=== PATIENT | male | born 1995 | race Caucasian/White ===

== ENCOUNTER 2016-09-22 16:52 | Emergency (ER) | payer OTHER ==
[2016-09-22] MEDS ORDERED: EPINEPHrine 1MG/10ML SYRINGE 1.5IN ONE (16:53)
--- NOTE | 2016-09-22 19:38 | EDDOCDS ---
Physician Documentation [facility] Name: Daniel Zuniga Age: 21 yrs Sex: Male : 1995 Arrival Date: 09/22/2016 Time: 16:52 Bed 2 Private MD: Disposition: Patient pronounced on 09/22/16 17:00 by Krishna Estrada. Impression: Cardiac arrest. Historical: - Allergies: Unable to obtain; - Home Meds: 1. Unknown - PMHx: Unable to obtain; - PSHx: Unable to obtain; - Social history: Smoking status: unknown if patient ever smoked tobacco. unable to assess. - : Unable to assess if pt is on anticoagulants. Unable to Verify Home Med List with the patient / caregiver. Immunization status is unknown. - Exposure Risk Screening:: Unable to Assess. Procedures: 09/22 17:37 Intubation: Intubated orally using Glidescope with 8.0 Fr. ETT. was successful on first br1 attempt. Ventilated with Ambu bag. Placement verified by CO2 detector w/ + color change, auscultating bilateral breath sounds, Patient tolerated well. 17:38 CPR: See CPR flow sheet. Initial patient assessment: unresponsive, cyanotic, pupils br1 fixed & dilated, no respiratory effort, intubated, Ambu ventilation, dependent lividity noted, pulses present w/ compressions, The presenting cardiac rhythm is asystole. respirations assisted with BVM, the patient was intubated prior to arrival, Intubated with Crispin airway by EMS, replaced with ET tube in ED., Compressions: began at 15:55. Meds given: See Meds list. Epinephrine X 3, despite ED evaluation and treatment, the patient . CPR was stopped at 17:00. MDM: 17:16 EPINEPHrine (1:10,000) 1 mg IVP once ordered. hs1 17:16 EPINEPHrine (1:10,000) 1 mg IVP once ordered. hs1 17:16 EPINEPHrine (1:10,000) 1 mg IVP once ordered. hs1 17:16 naloxone 2 mg IVP once ordered. hs1 18:25 ED course: Derek [place] Criminal Investigation photographing body at this time. br1 Accompanied by PFS. Heather. 19:07 [facility] Payment Agreement was scanned into [employer] and attached to record. jp5 19:07 Financial registration complete. jp5 Administered Medications: 06:52 Drug: EPINEPHrine 1 mg [epinephrine HCl (PF) 1 mg/mL (1 mL) intravenous solution (1 hs1 mL)] Route: IVP; Site: right antecubital; 16:45 Drug: EPINEPHrine 1 mg [epinephrine HCl (PF) 1 mg/mL (1 mL) intravenous solution (1 hs1 mL)] Route: IVP; Site: Implantable Access Device; 16:51 Drug: naloxone 2 mg [naloxone 1 mg/mL injection syringe (2 mL)] Route: IVP; Site: right hs1 antecubital; 16:56 Drug: EPINEPHrine 1 mg [epinephrine HCl (PF) 1 mg/mL (1 mL) intravenous solution (1 hs1 mL)] Route: IVP; Site: right antecubital; Signatures: Grupo Montaño RN RN Krishna Estrada MD MD br1 Erin Pino RN RN hs1 Michoacano Ruelas jp5 The chart was reviewed and I authenticate all verbal orders and agree with the evaluation and treatment provided.Attachments: 19:07 [facility] Payment Agreement jp5 ELIEL
--- NOTE | 2016-09-22 19:38 | EDDOCDS ---
Nurse's Notes [facility] Name: Daniel Zuniga Age: 21 yrs Sex: Male : 1995 Arrival Date: 09/22/2016 Time: 16:52 Bed 2 Private MD: Diagnosis: Cardiac arrest Presentation: 09/22 16:59 Presenting complaint: EMS states: found by fellow soldier. Patient was found with hs1 hypodermic needle and found down. Patient initial rhythm asystole. Method of arrival: Ambulance:. Care prior to arrival: See EMS report. oral intubation. Compressions began prior to arrival. 16:59 Acuity: ARTI Level 1 hs1 17:12 Adult Sepsis Screening: Patient has new or worsening altered mentation (1 point). hs1 Patient's respiratory rate is less than 22. Systolic blood pressure is less than or equal to 100 (1 point). Patient has a qSOFA score of 2. No known or suspected infection- Negative Sepsis Screen. Suicide/Homicide risk assessment- Unable to assess, . resuscitation. 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 Transition of care: patient was not received from another setting of care. 17:12 Method Of Arrival: Ambulance hs1 Triage Assessment: 16:45 General: Appears well nourished, well groomed. Pain: Unable to use pain scale. Patient hs1 is unresponsive. Neurological: Level of Consciousness is unresponsive. Historical: - Allergies: Unable to obtain; - Home Meds: 1. Unknown - PMHx: Unable to obtain; - PSHx: Unable to obtain; - Social history: Smoking status: unknown if patient ever smoked tobacco. unable to assess. - : Unable to assess if pt is on anticoagulants. Unable to Verify Home Med List with the patient / caregiver. Immunization status is unknown. - Exposure Risk Screening:: Unable to Assess. Screenin:12 Abuse/DV Screen: Unable to Assess. Nutritional screening: Unable to Assess. hs1 17:14 Screening information is obtained from unable to obtain. Fall risk: Unable to Assess. hs1 Assistance ADL's: unable to assess. Advance Directives: Unable to assess Advance Directive status due to pt condition. Assessment: 16:45 CPR assessment: unresponsive, dependent lividity noted. CPR assessment: no respiratory hs1 effort, intubated, Ambu ventilation, cyanotic, pale, pulses present w/ compressions. Cardiac rhythm is asystole. 16:51 CPR assessment: unresponsive, no respiratory effort, intubated, Ambu ventilation, hs1 cyanotic, pale, dependent lividity noted, pulses present w/ compressions. 16:56 CPR assessment: unresponsive, pupils fixed & dilated, no respiratory effort, intubated, hs1 Ambu ventilation, cyanotic, pale, dependent lividity noted, pulses present w/ compressions. Cardiac rhythm is asystole. Derm: Derm: abrasion noted to forehead. 16:59 CPR assessment: unresponsive, pupils fixed & dilated, no respiratory effort, intubated, hs1 Ambu ventilation, cyanotic, pale, dependent lividity noted, pulses present w/ compressions. Cardiac rhythm is asystole. Derm: abrasion/injury noted to forehead - dried blood noted. Social Work Consult: 17:06 Social Work Note: Spoke to [place] Isaac and gathered additional information. ml4 Extended support given. PSA contacted SSG Pena and informed him of pt's cardiac arrest, awaiting his arrival. 17:59 Social Work Note: EDUARDO (Farhat Szymanski and Festus Pisano) are currently present and ml4 investigating. 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 ml4 Vitals: 17:14 Log In Time N/A - ambulance arrival. hs1 ED Course: 16:45 Assist ventilation with Ambu bag. hs1 16:49 Inserted saline lock: 20 gauge in right antecubital area The patient tolerated the hs1 procedure well. 16:51 Changed richard airway pulled and ET Tube inserted. Intubation: 8.0 Fr. ETT placed orally. hs1 Performed by Sean MCINTOSH Successful on first attempt. Placement verified by Ventilated with Ambu bag. Inserted saline lock: 20 gauge in left hand. 16:56 Patient visited by Coty Pollard. zo 16:56 Patient moved to Waiting zo 16:56 Patient moved to 2 zo 17:01 Krishna Estrada MD is Attending Physician. br1 17:01 Patient visited by Krishna Estrada MD. br1 17:50 Krishna Estrada MD is Pronouncing Provider. br1 19:06 Patient name changed from Daniel\S\\S\Zuniga\S\ to Daniel\S\ \S\Zuniga. EDMS 19:07 [facility] Payment Agreement was scanned into [employer] and attached to record. jp5 19:15 EDUARDO Team here and Chain of Command for Investigation purposes per ME. hs1 Administered Medications: 06:52 Drug: EPINEPHrine 1 mg [epinephrine HCl (PF) 1 mg/mL (1 mL) intravenous solution (1 hs1 mL)] Route: IVP; Site: right antecubital; 16:45 Drug: EPINEPHrine 1 mg [epinephrine HCl (PF) 1 mg/mL (1 mL) intravenous solution (1 hs1 mL)] Route: IVP; Site: Implantable Access Device; 16:51 Drug: naloxone 2 mg [naloxone 1 mg/mL injection syringe (2 mL)] Route: IVP; Site: right hs1 antecubital; 16:56 Drug: EPINEPHrine 1 mg [epinephrine HCl (PF) 1 mg/mL (1 mL) intravenous solution (1 hs1 mL)] Route: IVP; Site: right antecubital; RT: 17:09 CPR Time: 30Minutes. js Order Results: There are currently no results for this order. Outcome: 17:50 Code Team Members : Krishna Estrada MD Medication Nurse: Odalys Huff RN Respiratory hs1 Therapist: Analilia Beck BROOMMAKING SUPERVISOR Other Team Members: Manuel Barker RN, Millie Chaves RN, Charles Nix RN, Krista Harvey FUEL CELL BINDER, Krista Mary FUEL CELL BINDER, Yareli Bruner FUEL CELL BINDER. Rhythm strips are placed in the patient chart. Outcome Patient . Patient : Time of 17:00 Pronounced by Krishna Estrada MD Body released to [place]. Condition: . 17:52 Patient . br1 19:37 Patient left the ED. cz Signatures: Dispatcher [employer] EDMS Grupo Montaño, RN RN Bobby Young Michelle, PSA PSA ml4 Coty Pollard Brian, MD MD br1 Erin Pino RN RN hs1 Michoacano Ruelas jp5 MTDD
--- NOTE | 2016-09-24 20:37 | EDDOCDS ---
Physician Documentation [facility] Name: Daniel Zuniga Age: 21 yrs Sex: Male : 1995 Arrival Date: 09/22/2016 Time: 16:52 Bed 2 Private MD: Disposition: Patient pronounced on 09/22/16 17:00 by Krishna Estrada. Impression: Cardiac arrest. Historical: - Allergies: Unable to obtain; - Home Meds: 1. Unknown - PMHx: Unable to obtain; - PSHx: Unable to obtain; - Social history: Smoking status: unknown if patient ever smoked tobacco. unable to assess. - : Unable to assess if pt is on anticoagulants. Unable to Verify Home Med List with the patient / caregiver. Immunization status is unknown. - Exposure Risk Screening:: Unable to Assess. Procedures: 09/22 17:37 Intubation: Intubated orally using Glidescope with 8.0 Fr. ETT. was successful on first br1 attempt. Ventilated with Ambu bag. Placement verified by CO2 detector w/ + color change, auscultating bilateral breath sounds, Patient tolerated well. 17:38 CPR: See CPR flow sheet. Initial patient assessment: unresponsive, cyanotic, pupils br1 fixed & dilated, no respiratory effort, intubated, Ambu ventilation, dependent lividity noted, pulses present w/ compressions, The presenting cardiac rhythm is asystole. respirations assisted with BVM, the patient was intubated prior to arrival, Intubated with Crispin airway by EMS, replaced with ET tube in ED., Compressions: began at 15:55. Meds given: See Meds list. Epinephrine X 3, despite ED evaluation and treatment, the patient . CPR was stopped at 17:00. MDM: 17:16 EPINEPHrine (1:10,000) 1 mg IVP once ordered. hs1 17:16 EPINEPHrine (1:10,000) 1 mg IVP once ordered. hs1 17:16 EPINEPHrine (1:10,000) 1 mg IVP once ordered. hs1 17:16 naloxone 2 mg IVP once ordered. hs1 18:25 ED course: Derek [place] Criminal Investigation photographing body at this time. br1 Accompanied by PFS. Heather. 19:07 [facility] Payment Agreement was scanned into [employer] and attached to record. jp5 19:07 Financial registration complete. jp5 09/23 13:23 Other: CHECKLIST FOR PT was scanned into [employer] and attached to record. gb 13:23 T-Sheet-- Draft Copy was scanned into [employer] and attached to record. gb 13:25 Rhythm Strip was scanned into [employer] and attached to record. gb Administered Medications: 09/22 06:52 Drug: EPINEPHrine 1 mg [epinephrine HCl (PF) 1 mg/mL (1 mL) intravenous solution (1 hs1 mL)] Route: IVP; Site: right antecubital; 16:45 Drug: EPINEPHrine 1 mg [epinephrine HCl (PF) 1 mg/mL (1 mL) intravenous solution (1 hs1 mL)] Route: IVP; Site: Implantable Access Device; 16:51 Drug: naloxone 2 mg [naloxone 1 mg/mL injection syringe (2 mL)] Route: IVP; Site: right hs1 antecubital; 16:56 Drug: EPINEPHrine 1 mg [epinephrine HCl (PF) 1 mg/mL (1 mL) intravenous solution (1 hs1 mL)] Route: IVP; Site: right antecubital; Signatures: Grupo Montaño, RN RN cz Mirta Brewster, Reg Reg Krishna Estrada MD MD br1 Erin Pino RN RN hs1 Michoacano Ruelas jp5 The chart was reviewed and I authenticate all verbal orders and agree with the evaluation and treatment provided.Attachments: :07 [facility] Payment Agreement jp5 13:23 T-Sheet-- Draft Copy gb Chart Complete MTDD
--- NOTE | 2016-09-24 20:37 | EDDOCDS ---
Physician Documentation [facility] Name: Daniel Zuniga Age: 21 yrs Sex: Male : 1995 Arrival Date: 09/22/2016 Time: 16:52 Bed 2 Private MD: Disposition: Patient pronounced on 09/22/16 17:00 by Krishna Estrada. Impression: Cardiac arrest. Historical: - Allergies: Unable to obtain; - Home Meds: 1. Unknown - PMHx: Unable to obtain; - PSHx: Unable to obtain; - Social history: Smoking status: unknown if patient ever smoked tobacco. unable to assess. - : Unable to assess if pt is on anticoagulants. Unable to Verify Home Med List with the patient / caregiver. Immunization status is unknown. - Exposure Risk Screening:: Unable to Assess. Procedures: 09/22 17:37 Intubation: Intubated orally using Glidescope with 8.0 Fr. ETT. was successful on first br1 attempt. Ventilated with Ambu bag. Placement verified by CO2 detector w/ + color change, auscultating bilateral breath sounds, Patient tolerated well. 17:38 CPR: See CPR flow sheet. Initial patient assessment: unresponsive, cyanotic, pupils br1 fixed & dilated, no respiratory effort, intubated, Ambu ventilation, dependent lividity noted, pulses present w/ compressions, The presenting cardiac rhythm is asystole. respirations assisted with BVM, the patient was intubated prior to arrival, Intubated with Crispin airway by EMS, replaced with ET tube in ED., Compressions: began at 15:55. Meds given: See Meds list. Epinephrine X 3, despite ED evaluation and treatment, the patient . CPR was stopped at 17:00. MDM: 17:16 EPINEPHrine (1:10,000) 1 mg IVP once ordered. hs1 17:16 EPINEPHrine (1:10,000) 1 mg IVP once ordered. hs1 17:16 EPINEPHrine (1:10,000) 1 mg IVP once ordered. hs1 17:16 naloxone 2 mg IVP once ordered. hs1 18:25 ED course: Derek [place] Criminal Investigation photographing body at this time. br1 Accompanied by PFS. Heather. 19:07 [facility] Payment Agreement was scanned into [employer] and attached to record. jp5 19:07 Financial registration complete. jp5 09/23 13:23 Other: CHECKLIST FOR PT was scanned into [employer] and attached to record. gb 13:23 T-Sheet-- Draft Copy was scanned into [employer] and attached to record. gb 13:25 Rhythm Strip was scanned into [employer] and attached to record. gb Administered Medications: 09/22 06:52 Drug: EPINEPHrine 1 mg [epinephrine HCl (PF) 1 mg/mL (1 mL) intravenous solution (1 hs1 mL)] Route: IVP; Site: right antecubital; 16:45 Drug: EPINEPHrine 1 mg [epinephrine HCl (PF) 1 mg/mL (1 mL) intravenous solution (1 hs1 mL)] Route: IVP; Site: Implantable Access Device; 16:51 Drug: naloxone 2 mg [naloxone 1 mg/mL injection syringe (2 mL)] Route: IVP; Site: right hs1 antecubital; 16:56 Drug: EPINEPHrine 1 mg [epinephrine HCl (PF) 1 mg/mL (1 mL) intravenous solution (1 hs1 mL)] Route: IVP; Site: right antecubital; Signatures: Grupo Montaño, RN RN cz Mirta Brewster, Reg Reg Krishna Estrada MD MD br1 Erin Pino RN RN hs1 Michoacano Ruelas jp5 The chart was reviewed and I authenticate all verbal orders and agree with the evaluation and treatment provided.Attachments: :07 [facility] Payment Agreement jp5 13:23 T-Sheet-- Draft Copy gb Chart Complete MTDD
--- NOTE | 2016-09-24 20:38 | EDDOCDS ---
Nurse's Notes [facility] Name: Daniel Zuniga Age: 21 yrs Sex: Male : 1995 Arrival Date: 09/22/2016 Time: 16:52 Bed 2 Private MD: Diagnosis: Cardiac arrest Presentation: 09/22 16:59 Presenting complaint: EMS states: found by fellow soldier. Patient was found with hs1 hypodermic needle and found down. Patient initial rhythm asystole. Method of arrival: Ambulance:. Care prior to arrival: See EMS report. oral intubation. Compressions began prior to arrival. 16:59 Acuity: ARTI Level 1 hs1 17:12 Adult Sepsis Screening: Patient has new or worsening altered mentation (1 point). hs1 Patient's respiratory rate is less than 22. Systolic blood pressure is less than or equal to 100 (1 point). Patient has a qSOFA score of 2. No known or suspected infection- Negative Sepsis Screen. Suicide/Homicide risk assessment- Unable to assess, . resuscitation. 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 Transition of care: patient was not received from another setting of care. 17:12 Method Of Arrival: Ambulance hs1 Triage Assessment: 16:45 General: Appears well nourished, well groomed. Pain: Unable to use pain scale. Patient hs1 is unresponsive. Neurological: Level of Consciousness is unresponsive. Historical: - Allergies: Unable to obtain; - Home Meds: 1. Unknown - PMHx: Unable to obtain; - PSHx: Unable to obtain; - Social history: Smoking status: unknown if patient ever smoked tobacco. unable to assess. - : Unable to assess if pt is on anticoagulants. Unable to Verify Home Med List with the patient / caregiver. Immunization status is unknown. - Exposure Risk Screening:: Unable to Assess. Screenin:12 Abuse/DV Screen: Unable to Assess. Nutritional screening: Unable to Assess. hs1 17:14 Screening information is obtained from unable to obtain. Fall risk: Unable to Assess. hs1 Assistance ADL's: unable to assess. Advance Directives: Unable to assess Advance Directive status due to pt condition. Assessment: 16:45 CPR assessment: unresponsive, dependent lividity noted. CPR assessment: no respiratory hs1 effort, intubated, Ambu ventilation, cyanotic, pale, pulses present w/ compressions. Cardiac rhythm is asystole. 16:51 CPR assessment: unresponsive, no respiratory effort, intubated, Ambu ventilation, hs1 cyanotic, pale, dependent lividity noted, pulses present w/ compressions. 16:56 CPR assessment: unresponsive, pupils fixed & dilated, no respiratory effort, intubated, hs1 Ambu ventilation, cyanotic, pale, dependent lividity noted, pulses present w/ compressions. Cardiac rhythm is asystole. Derm: Derm: abrasion noted to forehead. 16:59 CPR assessment: unresponsive, pupils fixed & dilated, no respiratory effort, intubated, hs1 Ambu ventilation, cyanotic, pale, dependent lividity noted, pulses present w/ compressions. Cardiac rhythm is asystole. Derm: abrasion/injury noted to forehead - dried blood noted. Social Work Consult: 17:06 Social Work Note: Spoke to [place] Isaac and gathered additional information. ml4 Extended support given. PSA contacted SSG Pena and informed him of pt's cardiac arrest, awaiting his arrival. 17:59 Social Work Note: EDUARDO (Farhat Szymanski and Festus Pisano) are currently present and ml4 investigating. 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 ml4 Vitals: 17:14 Log In Time N/A - ambulance arrival. hs1 ED Course: 16:45 Assist ventilation with Ambu bag. hs1 16:49 Inserted saline lock: 20 gauge in right antecubital area The patient tolerated the hs1 procedure well. 16:51 Changed richard airway pulled and ET Tube inserted. Intubation: 8.0 Fr. ETT placed orally. hs1 Performed by Sean MCINTOSH Successful on first attempt. Placement verified by Ventilated with Ambu bag. Inserted saline lock: 20 gauge in left hand. 16:56 Patient visited by Coty Pollard. zo 16:56 Patient moved to Waiting zo 16:56 Patient moved to 2 zo 17:01 Krishna Estrada MD is Attending Physician. br1 17:01 Patient visited by Krishna Estrada MD. br1 17:50 Krishna Estrada MD is Pronouncing Provider. br1 19:06 Patient name changed from Daniel\S\\S\Zuniga\S\ to Daniel\S\ \S\Zuniga. EDMS 19:07 [facility] Payment Agreement was scanned into [employer] and attached to record. jp5 19:15 EDUARDO Team here and Chain of Command for Investigation purposes per ME. hs1 09/23 13:23 Other: CHECKLIST FOR PT was scanned into [employer] and attached to record. gb 13:23 T-Sheet-- Draft Copy was scanned into [employer] and attached to record. gb 13:25 Rhythm Strip was scanned into [employer] and attached to record. gb Administered Medications: 09/22 06:52 Drug: EPINEPHrine 1 mg [epinephrine HCl (PF) 1 mg/mL (1 mL) intravenous solution (1 hs1 mL)] Route: IVP; Site: right antecubital; 16:45 Drug: EPINEPHrine 1 mg [epinephrine HCl (PF) 1 mg/mL (1 mL) intravenous solution (1 hs1 mL)] Route: IVP; Site: Implantable Access Device; 16:51 Drug: naloxone 2 mg [naloxone 1 mg/mL injection syringe (2 mL)] Route: IVP; Site: right hs1 antecubital; 16:56 Drug: EPINEPHrine 1 mg [epinephrine HCl (PF) 1 mg/mL (1 mL) intravenous solution (1 hs1 mL)] Route: IVP; Site: right antecubital; Attachments: 13:25 Rhythm Strip RT: 09/22 17:09 CPR Time: 30Minutes. js Order Results: There are currently no results for this order. Outcome: 17:50 Code Team Members : Krishna Estrada MD Medication Nurse: Odalys Huff RN Respiratory hs1 Therapist: Analilia Beck CLINICAL SUPPORT TECH Other Team Members: Manuel Barker RN, Millie Cahves RN, Charles Nix RN, Krista Harvey TOP EDGE BEVELER, Krista Mary TOP EDGE BEVELER, R Franc TOP EDGE BEVELER. Rhythm strips are placed in the patient chart. Outcome Patient . Patient : Time of 17:00 Pronounced by Krishna Estrada MD Body released to [place]. Condition: . 17:52 Patient . br1 19:37 Patient left the ED. cz Signatures: Dispatcher [employer] EDMS Grupo Montaño RN RN Mirta Workman, Reg Reg gb Yasmin,Bobby js Rosalva Kidd, PSA PSA ml4 Coty Pollard Brian, MD MD br1 Erin Pino, RN RN hs1 Michoacano Ruelas jp5 Chart Complete MTDD
== END 2016-09-22 17:00 | disposition expired ==
LOC: M ED 16:52 → EDBD 16:52 → M ED 17:00
DX: I46.9 Cardiac arrest, cause unspecified (principal)

== ENCOUNTER → 2016-09-23 | Outpatient (REF) | LOC: M LAB 08:24 | DX: Z02.89 Encounter for other administrative examinations ==